=== PATIENT | male | born 1950 | race Caucasian/White ===

== ENCOUNTER 2018-03-31 12:54 | Inpatient (IN) | payer MEDICARE ==
[~2018-03-31] VITALS: Ht 175.3 cm; Wt 89.5 kg
[~2018-03-31 12:54] MED LIST: ACET325; ACETAZOLAMIDE PO; ALBU90OI6; AMLO10; ASPI81CH; Alphagan P5 ML LEFTEYE; CALC1.25T; CARV6.25 PO; CLON.1 PO; CYAN100; DAILY MULTIPLE1 EACH; ENAL20; ERGO400 PO; FINA5 PO; FLUC200 PO; IBUP600; LISI20; LOSA25 PO; MIRT15; Methazolamide50 MG; OXYC5; Percocet 5-3251 EACH PO; Prilosec Otc20 MG PO; TAMS.4ER PO; TIMDOROPSO; TIMO.5OPG; Xalatan2.5 ML LEFTEYE
[2018-03-31 13:22] LABS: BASOPHILS ABSOLUTE AUTO 0.07 K/mm3 (0.00-0.23); BASOPHILS PERCENT AUTO 1 % (0-2); EOSINOPHILS ABSOLUTE AUTO 0.17 K/mm3 (0.00-0.68); EOSINOPHILS PERCENT AUTO 2 % (0-6); Hematocrit 43.4 % (37.0-53.0); Hemoglobin 14.5 g/dL (13.5-17.5); IMMATURE GRAN ABSOLUTE AUTO 0.04 K/mm3 (0.00-0.10); IMMATURE GRAN PERCENT AUTO 1 % (0-1); LYMPHOCYTES ABSOLUTE AUTO 2.08 K/mm3 (0.84-5.20); LYMPHOCYTES PERCENT AUTO 25 % (21-46); MONOCYTES ABSOLUTE AUTO 0.53 K/mm3 (0.16-1.47); MONOCYTES PERCENT AUTO 6 % (4-13); Mean Corpuscular HGB 34.8 pg (26.0-34.0); Mean Corpuscular HGB Conc 33.4 g/dL (31.5-36.5); Mean Corpuscular Volume 104 fL (80-100); Mean Platelet Volume 9.9 fL (9.1-12.4); NEUTROPHILS ABSOLUTE AUTO 5.44 K/mm3 (1.96-9.15); NEUTROPHILS PERCENT AUTO 65 % (41-73); Platelet Count 215 K/mm3 (150-400); RDW Coefficient Variation 11.8 % (11.7-14.2); RDW Standard Deviation 44.9 fL (35.1-46.3); Red Blood Cell Count 4.17 M/mm3 (4.30-5.90); White Blood Cell Count 8.33 K/mm3 (4.00-11.30)
[2018-03-31 13:44] LABS: Alanine Aminotransfer (ALT/SGP 40 U/L (12-78); Albumin, Blood 3.9 g/dL (3.4-5.0); Albumin/Globulin Ratio 1.1 (0.8-1.8); Alk Phos 49 U/L (50-136); Anion Gap 7 mmol/L (6-16); Aspartate Aminotrans (AST/SGOT 26 U/L (12-37); Bilirubin, Total 0.3 mg/dL (0.1-1.0); Blood Urea Nitrogen 22 mg/dL (8-24); Bun/Creatinine Ratio 21.6 (12.0-20.0); CO2, Blood 25 mmol/L (21-32); Calcium, Blood 8.8 mg/dL (8.5-10.1); Chloride, Blood 111 mmol/L (98-108); Creatinine, Blood 1.02 mg/dL (0.60-1.20); Globulin, Blood 3.6 g/dL (2.2-4.0); Glomerular Filtration Rate >60 (60-); Glucose, Blood 111 mg/dL (70-99); Potassium, Blood 4.6 mmol/L (3.5-5.5); Sodium, Blood 143 mmol/L (136-145); Total Protein, Blood 7.5 g/dL (6.4-8.2)
[2018-04-01 08:09] LABS: CHOL/HDL RATIO 5.1; Cholesterol 210 mg/dL (50-200); HDL Cholesterol 41 mg/dL (>39); LDL/HDL RATIO 2.3; Low Density Lipoprotein Chol 93 mg/dL (0-110); Triglycerides 381 mg/dL (30-160); Very Low Density Lipoprot Chol 76 mg/dL (6-32)
[2018-04-02] MEDS ORDERED: DORZOLAMIDE-TI1 EACH LEFTEYE (09:37)
[2018-04-03] MEDS ORDERED: ATOR40TA PO (11:36)
[2018-04-03] MEDS ORDERED: Aspir 8181 MG PO (11:36)
== END 2018-04-03 12:52 | disposition home or self-care (01) | DRG 66 ==
LOC: ER 12:54 → PCU 12:55 → ER 15:43 → PCU 15:53
PROVIDERS: Internal Medicine; Physician Assistant
DX: I63.9 Cerebral infarction, unspecified (principal); Z98.52 Vasectomy status; Z87.891 Personal history of nicotine dependence; I16.0 Hypertensive urgency; H40.9 Unspecified glaucoma; N40.0 Benign prostatic hyperplasia without lower urinary tract symptoms; F10.10 Alcohol abuse, uncomplicated; I65.21 Occlusion and stenosis of right carotid artery; E78.5 Hyperlipidemia, unspecified; R20.0 Anesthesia of skin; R53.1 Weakness; I10 Essential (primary) hypertension
CPT/HCPCS: 36415; 70450; 70544; 70551; 72125; 80053; 80061; 82947; 83036; 85025; 93005; 93010; 93306; 93880; 96374; 97110; 97161; 97166; 97530; 99285-25; G8978; G8979; G8980; G8987; G8988; J0360; J1650

== ENCOUNTER → 2019-12-19 | Outpatient (CLI) | payer MEDICARE ==
[~2019-12-19] MED LIST changes: +ATOR40TA PO; +Aspir 8181 MG PO; +DORZOLAMIDE-TI1 EACH LEFTEYE
== END | disposition home or self-care (01) ==
LOC: LAB SHORT 14:00 → LAB 14:00
DX: L08.9 Local infection of the skin and subcutaneous tissue, unspecified (principal)
CPT/HCPCS: 87070; 87147; 87205

== ENCOUNTER 2020-01-09 17:40 | Emergency (ER) | payer MEDICARE ==
[~2020-01-09] VITALS: Ht 175.3 cm; Wt 87.1 kg
[2020-01-09] MEDS ORDERED: LATA.005SO RIGHTEYE (17:54)
[2020-01-09] MEDS ORDERED: CLON.1 PO (17:55)
[2020-01-09 18:07] LABS: BASOPHILS PERCENT AUTO 1 % (0-2); EOSINOPHILS ABSOLUTE AUTO 0.11 K/mm3 (0.00-0.68); EOSINOPHILS PERCENT AUTO 1 % (0-6); Hematocrit 45.2 % (37.0-53.0); Hemoglobin 15.1 g/dL (13.5-17.5); IMMATURE GRAN ABSOLUTE AUTO 0.14 K/mm3 (0.00-0.10); IMMATURE GRAN PERCENT AUTO 1 % (0-1); LYMPHOCYTES ABSOLUTE AUTO 2.69 K/mm3 (0.84-5.20); LYMPHOCYTES PERCENT AUTO 24 % (21-46); MONOCYTES ABSOLUTE AUTO 0.79 K/mm3 (0.16-1.47); MONOCYTES PERCENT AUTO 7 % (4-13); Mean Corpuscular HGB 34.6 pg (26.0-34.0); Mean Corpuscular HGB Conc 33.4 g/dL (31.5-36.5); Mean Corpuscular Volume 103 fL (80-100); Mean Platelet Volume 9.6 fL (9.1-12.4); NEUTROPHILS ABSOLUTE AUTO 7.31 K/mm3 (1.96-9.15); NEUTROPHILS PERCENT AUTO 66 % (41-73); NRBC ABSOLUTE 0.02 K/mm3 (0.00-0.02); NRBC Auto 0.2 /100 WBC (0.0-0.2); Platelet Count 231 K/mm3 (150-400); RDW Coefficient Variation 11.9 % (11.7-14.2); RDW Standard Deviation 45.6 fL (35.1-46.3); Red Blood Cell Count 4.37 M/mm3 (4.30-5.90); White Blood Cell Count 11.14 K/mm3 (4.00-11.30)
[2020-01-09 18:35] LABS: Alanine Aminotransfer (ALT/SGP 52 U/L (12-78); Alk Phos 57 U/L (50-136); Anion Gap 6 mmol/L (6-16); Aspartate Aminotrans (AST/SGOT 33 U/L (12-37); Bilirubin, Total 0.3 mg/dL (0.1-1.0); Blood Urea Nitrogen 31 mg/dL (8-24); Bun/Creatinine Ratio 28.4 (12.0-20.0); CO2, Blood 25 mmol/L (21-32); Calcium, Blood 9.5 mg/dL (8.5-10.1); Chloride, Blood 110 mmol/L (98-108); Creatinine, Blood 1.09 mg/dL (0.60-1.20); Ethanol (Alcohol), Blood, Med <3 mg/dL; Globulin, Blood 3.9 g/dL (2.2-4.0); Glomerular Filtration Rate >60 (60-); Glucose, Blood 103 mg/dL (70-99); Magnesium, Blood 2.3 mg/dL (1.6-2.4); Potassium, Blood 4.1 mmol/L (3.5-5.5); Sodium, Blood 141 mmol/L (136-145); Total Protein, Blood 7.9 g/dL (6.4-8.2); Troponin I <0.015 ng/mL (0.000-0.040)
== END 2020-01-09 19:50 | disposition home or self-care (01) ==
LOC: ER 17:40
PROVIDERS: Emergency Medicine
DX: I16.0 Hypertensive urgency (principal); I10 Essential (primary) hypertension; Z79.899 Other long term (current) drug therapy; Z79.82 Long term (current) use of aspirin; Z87.891 Personal history of nicotine dependence
CPT/HCPCS: 36415; 70450; 80053; 83735; 84484; 85025; 93005; 93010; 99284-25; G0480; J0360

== ENCOUNTER 2020-02-09 08:09 | Day surgery (SDC) | payer MEDICARE ==
[~2020-02-09] VITALS: Ht 175.3 cm; Wt 84.8 kg
[~2020-02-09 08:09] MED LIST changes: +BRIMONIDINE TART5 M1 RIGHTEYE; +CARV25 PO; +Calcium + Vita1 EACH PO; +Clonidine HCl0.1 MG PO; +FISH OIL 1,2001 EAC7 PO; +FLOMAX0.4 MG PO; +LATA.005SO BOTHEYES; +LATA.005SO RIGHTEYE; +LOSA50 PO; +MULTIPLE VITAM1 EACH PO; +OMEP20ER PO; +TIMDOROPSO BOTHEYES
--- NOTE | 2020-02-09 10:33 | NUR ---
02/09/20 1033 Yun Sow LATE ENTRY: PT WITH BRUISED ARMS ALL OVER AND A FEW LARGE SCABS NOTED. DISCUSSED WITH PT, HE SAID HE FELL A WEEK AGO SPRAYING HIS BACK YARD WITH A BACKPACK SPRAYER AND DOWN ABOUT 4 FEET. SKIN AND SCAB INTACT.
== END 2020-02-09 10:12 | disposition home or self-care (01) ==
LOC: ORSCSDS 08:09
PROVIDERS: Internal Medicine Gastroenterology
PROC: 0DBK8ZX Excision of Ascending Colon, Via Natural or Artificial Opening Endoscopic, Diagnostic (ICD-10-PCS; principal; 2020-02-09 09:15)
PROC: 0DBE8ZX Excision of Large Intestine, Via Natural or Artificial Opening Endoscopic, Diagnostic (ICD-10-PCS; principal; 2020-02-09 09:15)
PROC: 0DB68ZX Excision of Stomach, Via Natural or Artificial Opening Endoscopic, Diagnostic (ICD-10-PCS; principal; 2020-02-09 09:15)
PROC: 0DB58ZX Excision of Esophagus, Via Natural or Artificial Opening Endoscopic, Diagnostic (ICD-10-PCS; principal; 2020-02-09 09:15)
PROC: 0DBL8ZX Excision of Transverse Colon, Via Natural or Artificial Opening Endoscopic, Diagnostic (ICD-10-PCS; principal; 2020-02-09 09:15)
DX: K22.70 Barrett's esophagus without dysplasia (principal); K29.70 Gastritis, unspecified, without bleeding; R19.7 Diarrhea, unspecified; Z86.010 Personal history of colon polyps; D12.3 Benign neoplasm of transverse colon; D12.2 Benign neoplasm of ascending colon; R10.13 Epigastric pain; K44.9 Diaphragmatic hernia without obstruction or gangrene; I10 Essential (primary) hypertension; Z87.891 Personal history of nicotine dependence; Z79.899 Other long term (current) drug therapy; Z79.82 Long term (current) use of aspirin
CPT/HCPCS: 82947; 88305; 88342; J2704; J7120

== ENCOUNTER 2020-08-10 12:21 | Emergency (ER) | payer MEDICARE ==
[~2020-08-10] VITALS: Ht 175.3 cm; Wt 88.9 kg
[2020-08-10 13:12] LABS: BASOPHILS PERCENT AUTO 1 % (0-2); EOSINOPHILS PERCENT AUTO 4 % (0-6); Hematocrit 36.6 % (37.0-53.0); Hemoglobin 12.6 g/dL (13.5-17.5); IMMATURE GRAN ABSOLUTE AUTO 0.04 K/mm3 (0.00-0.10); IMMATURE GRAN PERCENT AUTO 0 % (0-1); LYMPHOCYTES PERCENT AUTO 24 % (21-46); MONOCYTES ABSOLUTE AUTO 0.57 K/mm3 (0.16-1.47); MONOCYTES PERCENT AUTO 6 % (4-13); Mean Corpuscular HGB 34.5 pg (26.0-34.0); Mean Corpuscular HGB Conc 34.4 g/dL (31.5-36.5); Mean Corpuscular Volume 100 fL (80-100); Mean Platelet Volume 10.2 fL (9.1-12.4); NEUTROPHILS ABSOLUTE AUTO 6.05 K/mm3 (1.96-9.15); NEUTROPHILS PERCENT AUTO 65 % (41-73); Platelet Count 231 K/mm3 (150-400); RDW Coefficient Variation 12.3 % (11.7-14.2); RDW Standard Deviation 45.5 fL (35.1-46.3); Red Blood Cell Count 3.65 M/mm3 (4.30-5.90); White Blood Cell Count 9.36 K/mm3 (4.00-11.30)
[2020-08-10 13:32] LABS: Alanine Aminotransfer (ALT/SGP 32 U/L (12-78); Albumin, Blood 3.8 g/dL (3.4-5.0); Albumin/Globulin Ratio 1.2 (0.8-1.8); Alk Phos 48 U/L (50-136); Anion Gap 3 mmol/L (6-16); Aspartate Aminotrans (AST/SGOT 20 U/L (12-37); Bilirubin, Total 0.4 mg/dL (0.1-1.0); Blood Urea Nitrogen 22 mg/dL (8-24); CO2, Blood 27 mmol/L (21-32); Calcium, Blood 8.9 mg/dL (8.5-10.1); Chloride, Blood 110 mmol/L (98-108); Creatinine, Blood 1.16 mg/dL (0.60-1.20); Globulin, Blood 3.2 g/dL (2.2-4.0); Glomerular Filtration Rate >60 (60-); Glucose, Blood 121 mg/dL (70-99); Potassium, Blood 4.5 mmol/L (3.5-5.5); Sodium, Blood 140 mmol/L (136-145); Troponin I <0.015 ng/mL (0.000-0.040)
[2020-08-10] MEDS ORDERED: Sucralfate1 GM PO (14:58)
== END 2020-08-10 15:07 | disposition home or self-care (01) ==
LOC: ER 12:21
PROVIDERS: Emergency Medicine
DX: R07.9 Chest pain, unspecified (principal); R10.9 Unspecified abdominal pain; I10 Essential (primary) hypertension; K21.9 Gastro-esophageal reflux disease without esophagitis; Z88.8 Allergy status to other drugs, medicaments and biological substances; Z79.82 Long term (current) use of aspirin; Z79.899 Other long term (current) drug therapy; Z87.891 Personal history of nicotine dependence
CPT/HCPCS: 36415; 71046; 76705; 80053; 83690; 83880; 84484; 85025; 93005; 93010; 96374; 99284-25; A9270

== ENCOUNTER 2023-10-30 12:48 | Emergency (ER) | payer MEDICARE ==
[~2023-10-30] VITALS: Ht 172.7 cm; Wt 87.1 kg
[~2023-10-30 12:48] MED LIST changes: +Sucralfate1 GM PO
[2023-10-30 12:56] VITALS: BP 136/68
== END 2023-10-30 15:44 | disposition home or self-care (01) ==
LOC: ER 12:48
DX: G43.909 Migraine, unspecified, not intractable, without status migrainosus (principal); H53.9 Unspecified visual disturbance
CPT/HCPCS: 70450; 99284-25